=== PATIENT | male | born 1945 | race Caucasian/White ===

== ENCOUNTER 2021-10-07 10:32 | Inpatient (IN) | payer MEDICARE, MEDICAID ==
[~2021-10-07] VITALS: Ht 167.6 cm; Wt 107.3 kg
[2021-10-07] MEDS ORDERED: IOHEXOL-350 100 ML BOTTLE ONE (11:31)
[2021-10-07] MEDS ORDERED: LABETALOL 5MG/ML SYR 20 MG/4 ML SYRINGE IV ONE (11:45)
[2021-10-07 11:48] LABS: CLARITY URINE CLEAR (CLEAR); COLOR URINE YELLOW (YELLOW); KETONES URINE NEGATIVE (NEGATIVE); LEUKOCYTE ESTERASE URINE NEGATIVE (NEGATIVE); NITRITE URINE NEGATIVE (NEGATIVE); OCCULT BLOOD URINE NEGATIVE (NEGATIVE); PH URINE 7.5 (4.5-8.0); PROTEIN URINE NEGATIVE (NEGATIVE); SPECIFIC GRAVITY URINE 1.033 (1.005-1.030); UROBILINOGEN URINE 0.2 E.U./dL (0.2-1.0)
[2021-10-07 11:49] LABS: BASOPHILS % 0.9 % (0.0-2.0); EOSINOPHILS % 1.1 % (0.0-5.0); HEMATOCRIT. 45.4 % (42.0-52.0); HEMOGLOBIN. 14.9 g/dL (14.0-18.0); LYMPHOCYTES % 11.8 % (20.0-50.0); MEAN CORPUSCULAR HEMOGLOBIN 29.3 pg (28.0-32.0); MEAN CORPUSCULAR VOLUME 89.3 fL (80.0-94.0); MEAN PLATELET VOLUME 7.9 fl (7.4-10.4); MONOCYTES % 11.6 % (2.0-8.0); NEUTROPHILS % 74.6 % (40.0-76.0); PLATELET 268 x1000/uL (130-400); RED BLOOD CELL COUNT 5.08 mill/uL (4.7-6.1); RED CELL DISTRIBUTION WIDTH 14.6 % (11.6-14.6)
[2021-10-07 11:53] LABS: CHLORIDE 94 mEq/L (98-107)
[2021-10-07 11:56] LABS: ETHANOL BLOOD < 10 mg/dL
[2021-10-07 12:10] LABS: *AMPHETAMINES SCREEN URINE NEGATIVE (NEGATIVE); OPIATES URINE SCREEN NEGATIVE (NEGATIVE)
[2021-10-07 12:14] LABS: *BENZODIAZEPINES SCREEN URINE NEGATIVE (NEGATIVE)
[2021-10-07 12:15] LABS: *COCAINE SCREEN URINE NEGATIVE (NEGATIVE); METHADONE URINE SCREEN NEGATIVE (NEGATIVE)
[2021-10-07 12:17] LABS: *BARBITURATES SCREEN URINE NEGATIVE (NEGATIVE)
[2021-10-07 12:18] LABS: CANNABINOID URINE SCREEN NEGATIVE (NEGATIVE); PHENCYCLIDINE URINE SCREEN NEGATIVE (NEGATIVE)
[2021-10-07] MEDS ORDERED: ACETAMINOPHEN 325MG TABLET PO PRN (14:00)
[2021-10-07] MEDS ORDERED: MAGNESIUM/ALUMINUM HYDROXIDE/SIMETHICONE 30ML UDC PO PRN (14:00)
[2021-10-07] MEDS ORDERED: GUAIFENESIN 200MG/10ML SUGAR FREE UDC PO PRN (14:00)
[2021-10-07] MEDS ORDERED: NITROGLYCERIN 0.4MG TABLET SL SL PRN (14:00)
[2021-10-07] MEDS ORDERED: IPRATROPIUM/ALBUTEROL 0.5-3(2.5)MG/3ML NEB NEB PRN (14:00)
[2021-10-07] MEDS ORDERED: POTASSIUM CHLORIDE 20MEQ TABLET SR PO NR (14:00)
[2021-10-07] MEDS ORDERED: ENOXAPARIN 40MG/0.4ML SYR SUBCUT SCH (14:00)
[2021-10-07] MEDS ORDERED: DOCUSATE SODIUM 100MG CAPSULE PO PRN (14:00)
[2021-10-07 14:49] LABS: FOLIC ACID (FOLATE) SERUM 11.1 ng/mL (>5.38)
[2021-10-07] MEDS: AMLODIPINE 10MG TABLET PO SCH (15:23)
[2021-10-07] MEDS: ENOXAPARIN 30MG/0.3ML SYR SUBCUT SCH (15:24)
[2021-10-07] MEDS: CLONIDINE 0.1MG TABLET PO PRN (16:37)
[2021-10-07] MEDS: NITROGLYCERIN OINT 1GM/INCH UDPKT TD SCH ×2 (17:18→23:23)
[2021-10-07] MEDS: ONDANSETRON HCL 4MG/2ML INJ IV PRN (17:19)
[2021-10-07] MEDS: HYDRALAZINE 20MG/ML VIAL IV PRN (17:19)
[2021-10-07] MEDS ORDERED: DEXTROSE 50% WATER 50ML SYRINGE IV PRN (20:45)
[2021-10-07] MEDS: INSULIN LISPRO 100 UNITS/ML SUBCUT SCH (21:00)
[2021-10-07] MEDS: ACETAMINOPHEN 325MG TABLET PO PRN (21:31)
[2021-10-07] MEDS: BLOOD SUGAR DIAGNOSTIC STRIP TEST SCH (21:38)
[2021-10-07] MEDS: FAMOTIDINE 20MG TABLET PO SCH (21:54)
[2021-10-07] MEDS: HYDRALAZINE HCL 50MG TABLET PO SCH (22:00)
[2021-10-07] MEDS: LISINOPRIL 20MG TABLET PO SCH (23:23)
[2021-10-07 23:30] VITALS: BP 115/51
[2021-10-08] VITALS (10 sets, daily range): BP systolic 136–190; BP diastolic 62–128
[2021-10-08 00:17] LABS: CREATINE KINASE MB FRACTION 2.9 ng/mL (0.5-3.6)
[2021-10-08] MEDS: CLONIDINE 0.1MG TABLET PO PRN ×2 (00:22→12:06)
[2021-10-08] MEDS: ACETAMINOPHEN 325MG TABLET PO PRN (00:30)
[2021-10-08] MEDS: ZOLPIDEM TARTRATE 5MG TABLET PO PRN ×2 (00:31→21:44)
[2021-10-08] MEDS: HYDRALAZINE HCL 50MG TABLET PO SCH ×4 (01:14→21:43)
[2021-10-08] MEDS: ENOXAPARIN 30MG/0.3ML SYR SUBCUT SCH ×3 (02:54→22:43)
[2021-10-08] MEDS: NITROGLYCERIN OINT 1GM/INCH UDPKT TD SCH ×3 (05:43→21:44)
[2021-10-08 06:25] LABS: EOSINOPHILS % 3.4 % (0.0-5.0); HEMATOCRIT. 38.7 % (42.0-52.0); HEMOGLOBIN. 12.8 g/dL (14.0-18.0); LYMPHOCYTES % 12.9 % (20.0-50.0); MEAN CORPUSCULAR HEMOGLOBIN 29.2 pg (28.0-32.0); MEAN CORPUSCULAR VOLUME 88.4 fL (80.0-94.0); MEAN PLATELET VOLUME 8.1 fl (7.4-10.4); MONOCYTES % 13.5 % (2.0-8.0); NEUTROPHILS % 69.2 % (40.0-76.0); PLATELET 240 x1000/uL (130-400); RED BLOOD CELL COUNT 4.38 mill/uL (4.7-6.1); RED CELL DISTRIBUTION WIDTH 14.6 % (11.6-14.6)
[2021-10-08 06:41] LABS: CHLORIDE 99 mEq/L (98-107)
[2021-10-08 07:19] LABS: LDL CHOLESTEROL 59 mg/dL (5-100); PHOSPHORUS 3.5 mg/dL (2.5-4.9)
[2021-10-08 07:21] LABS: HDL CHOLESTEROL 84 mg/dL (40-59)
[2021-10-08] MEDS: INSULIN LISPRO 100 UNITS/ML SUBCUT SCH ×4 (08:00→20:17)
[2021-10-08] MEDS: BLOOD SUGAR DIAGNOSTIC STRIP TEST SCH ×4 (08:14→20:17)
[2021-10-08] MEDS: ASPIRIN 325MG EC TABLET PO SCH (09:08)
[2021-10-08] MEDS: LISINOPRIL 20MG TABLET PO SCH ×2 (09:09→20:18)
[2021-10-08] MEDS: AMLODIPINE 10MG TABLET PO SCH (09:09)
[2021-10-08] MEDS: FAMOTIDINE 20MG TABLET PO SCH ×2 (09:09→20:18)
[2021-10-08] MEDS: ONDANSETRON HCL 4MG/2ML INJ IV PRN ×3 (10:05→20:17)
[2021-10-08] MEDS: HYDRALAZINE 20MG/ML VIAL IV PRN (16:07)
[2021-10-09] VITALS (14 sets, daily range): BP systolic 141–210; BP diastolic 76–101
[2021-10-09] MEDS: HYDRALAZINE 20MG/ML VIAL IV PRN ×3 (01:00→19:19)
[2021-10-09] MEDS: CLONIDINE 0.1MG TABLET PO PRN ×2 (01:35→17:56)
[2021-10-09] MEDS: INSULIN LISPRO 100 UNITS/ML SUBCUT SCH ×4 (06:24→20:26)
[2021-10-09] MEDS: BLOOD SUGAR DIAGNOSTIC STRIP TEST SCH ×4 (06:24→20:27)
[2021-10-09] MEDS: NITROGLYCERIN OINT 1GM/INCH UDPKT TD SCH ×3 (06:27→21:59)
[2021-10-09] MEDS: HYDRALAZINE HCL 50MG TABLET PO SCH ×3 (06:28→22:00)
[2021-10-09] MEDS: ONDANSETRON HCL 4MG/2ML INJ IV PRN ×3 (06:34→16:07)
[2021-10-09] MEDS ORDERED: CLON0.3T PO (08:02)
[2021-10-09] MEDS ORDERED: LOSA50TA41 PO (08:02)
[2021-10-09] MEDS ORDERED: MEMA5TAB42 PO (08:02)
[2021-10-09] MEDS ORDERED: METO5TAB86 PO (08:02)
[2021-10-09] MEDS ORDERED: GABA-532 PO (08:02)
[2021-10-09] MEDS ORDERED: MINO2.5T2 PO (08:02)
[2021-10-09] MEDS ORDERED: FURO-151 PO (08:02)
[2021-10-09] MEDS ORDERED: PHEN100C4 PO (08:02)
[2021-10-09] MEDS ORDERED: DULO30CA2 PO (08:02)
[2021-10-09] MEDS ORDERED: HYDR100T26 PO (08:02)
[2021-10-09] MEDS: LISINOPRIL 20MG TABLET PO SCH ×2 (08:46→20:27)
[2021-10-09] MEDS: ASPIRIN 325MG EC TABLET PO SCH (08:46)
[2021-10-09] MEDS: AMLODIPINE 10MG TABLET PO SCH (08:47)
[2021-10-09] MEDS: FAMOTIDINE 20MG TABLET PO SCH ×2 (08:47→20:27)
[2021-10-09] MEDS: ENOXAPARIN 30MG/0.3ML SYR SUBCUT SCH ×2 (08:48→20:27)
[2021-10-09] MEDS ORDERED: CLONIDINE 0.2MG TABLET PO PRN (19:30)
[2021-10-09] MEDS ORDERED: NITROGLYCERIN OINT 1GM/INCH UDPKT TD NR (20:00)
[2021-10-09] MEDS: ACETAMINOPHEN 325MG TABLET PO PRN (20:27)
[2021-10-09] MEDS ORDERED: NITROGLYCERIN OINT 1GM/INCH UDPKT TD SCH (22:00)
[2021-10-10 04:15] VITALS: BP 189/96
[2021-10-10 05:30] VITALS: BP 159/69
[2021-10-10] MEDS: NITROGLYCERIN OINT 1GM/INCH UDPKT TD SCH ×3 (06:30→21:45)
[2021-10-10] MEDS: BLOOD SUGAR DIAGNOSTIC STRIP TEST SCH ×4 (06:31→20:13)
[2021-10-10] MEDS: INSULIN LISPRO 100 UNITS/ML SUBCUT SCH ×4 (06:31→21:00)
[2021-10-10] MEDS: HYDRALAZINE HCL 50MG TABLET PO SCH ×3 (06:31→21:45)
[2021-10-10 08:00] VITALS: BP 165/83
[2021-10-10] MEDS: FAMOTIDINE 20MG TABLET PO SCH ×2 (08:42→21:45)
[2021-10-10] MEDS: MINOXIDIL 2.5MG TABLET PO SCH ×2 (08:42→21:46)
[2021-10-10] MEDS: ASPIRIN 325MG EC TABLET PO SCH (08:42)
[2021-10-10] MEDS: LISINOPRIL 20MG TABLET PO SCH ×2 (08:42→21:46)
[2021-10-10] MEDS: AMLODIPINE 10MG TABLET PO SCH (08:42)
[2021-10-10] MEDS: ENOXAPARIN 30MG/0.3ML SYR SUBCUT SCH ×2 (08:43→21:45)
[2021-10-10] MEDS: ONDANSETRON HCL 4MG/2ML INJ IV PRN ×2 (11:22→20:03)
[2021-10-10 12:00] VITALS: BP 154/71
[2021-10-10] MEDS: ACETAMINOPHEN 325MG TABLET PO PRN (15:41)
[2021-10-10 16:00] VITALS: BP 151/80
[2021-10-10 20:00] VITALS: BP 156/86
[2021-10-11] VITALS: BP 159/86
[2021-10-11 04:00] VITALS: BP 146/86
[2021-10-11] MEDS: BLOOD SUGAR DIAGNOSTIC STRIP TEST SCH (04:56)
[2021-10-11] MEDS: INSULIN LISPRO 100 UNITS/ML SUBCUT SCH (05:17)
[2021-10-11] MEDS: NITROGLYCERIN OINT 1GM/INCH UDPKT TD SCH (06:46)
[2021-10-11] MEDS: HYDRALAZINE HCL 50MG TABLET PO SCH (06:46)
[2021-10-11 08:00] VITALS: BP 178/98
[2021-10-11] MEDS: ASPIRIN 325MG EC TABLET PO SCH (08:20)
[2021-10-11] MEDS: FAMOTIDINE 20MG TABLET PO SCH (08:20)
[2021-10-11] MEDS: AMLODIPINE 10MG TABLET PO SCH (08:20)
[2021-10-11] MEDS: ENOXAPARIN 30MG/0.3ML SYR SUBCUT SCH (08:20)
[2021-10-11] MEDS: MINOXIDIL 2.5MG TABLET PO SCH (08:21)
[2021-10-11] MEDS: LISINOPRIL 20MG TABLET PO SCH (08:21)
[2021-10-11] MEDS ORDERED: MINOXIDIL 2.5MG TABLET PO SCH (09:30)
== END 2021-10-11 11:20 | disposition home health service (06) | DRG 74 ==
LOC: ER 10:45 → MICUSO 11:38 → EDBEDREQTM 11:39 → EDBEDREQ 11:39 → SUPCPDRO 14:00 → 5EST 21:57 → 8WST 10-08 16:34
PROVIDERS: ADMIT Internal Medicine; ATTEND Internal Medicine
DX: G51.0 Bell's palsy (principal); E87.1 Hypo-osmolality and hyponatremia; I16.1 Hypertensive emergency; E11.9 Type 2 diabetes mellitus without complications; E66.9 Obesity, unspecified; E87.6 Hypokalemia; I10 Essential (primary) hypertension; Z86.73 Personal history of transient ischemic attack (TIA), and cerebral infarction without residual deficits; Z79.4 Long term (current) use of insulin; Z68.38 Body mass index [BMI] 38.0-38.9, adult
CPT/HCPCS: 36415; 70496; 70498; 70551; 71045; 80053; 80061; 80185; 80305; 80320; 81003; 82550; 82553; 82607; 82746; 82962; 83036; 83540; 83550; 83735; 84100; 84443; 84484; 85025; 93005; 93306; 93970; 99291; J0360; J1650; J2405; J3490; Q9967; G0480

== ENCOUNTER 2023-02-09 15:01 | Inpatient (IN) | payer MEDICARE, MEDICAID ==
[~2023-02-09] VITALS: Ht 167.6 cm; Wt 98.0 kg
[~2023-02-09 15:01] MED LIST: DULO30CA2 PO; FURO-151 PO; GABA-532 PO; HYDR100T26 PO; LOSA50TA41 PO; MEMA5TAB42 PO; METO5TAB86 PO; PHEN100C4 PO
[2023-02-09 16:39] LABS: BASOPHILS % 0.9 % (0.0-2.0); EOSINOPHILS % 1.2 % (0.0-5.0); HEMATOCRIT. 44.9 % (42.0-52.0); HEMOGLOBIN. 14.6 g/dL (14.0-18.0); LYMPHOCYTES % 12.8 % (20.0-50.0); MEAN CORPUSCULAR HEMOGLOBIN 29.3 pg (28.0-32.0); MEAN CORPUSCULAR VOLUME 90.3 fL (80.0-94.0); MEAN PLATELET VOLUME 7.9 fl (7.4-10.4); MONOCYTES % 7.2 % (2.0-8.0); NEUTROPHILS % 77.9 % (40.0-76.0); PLATELET 242 x1000/uL (130-400); RED BLOOD CELL COUNT 4.97 mill/uL (4.7-6.1); RED CELL DISTRIBUTION WIDTH 13.9 % (11.6-14.6)
[2023-02-09 16:49] LABS: CHLORIDE 101 mEq/L (98-107)
[2023-02-09 17:27] LABS: CLARITY URINE CLEAR (CLEAR); COLOR URINE YELLOW (YELLOW); KETONES URINE NEGATIVE (NEGATIVE); LEUKOCYTE ESTERASE URINE NEGATIVE (NEGATIVE); NITRITE URINE NEGATIVE (NEGATIVE); OCCULT BLOOD URINE NEGATIVE (NEGATIVE); PH URINE 6.5 (4.5-8.0); PROTEIN URINE TRACE (NEGATIVE); SPECIFIC GRAVITY URINE 1.017 (1.005-1.030)
[2023-02-09] MEDS: MECLIZINE 25MG TABLET PO ONE ×2 (18:09→18:56)
[2023-02-09] MEDS ORDERED: AMLODIPINE 5MG TABLET PO ONE (19:15)
[2023-02-09] MEDS ORDERED: HYDRALAZINE HCL 100MG TABLET PO ONE (21:00)
[2023-02-09] MEDS ORDERED: MECLIZINE 12.5MG TABLET PO NR (21:15)
[2023-02-09] MEDS ORDERED: HYDRALAZINE HCL 25MG TABLET PO NR (21:15)
[2023-02-09] MEDS ORDERED: IPRATROPIUM/ALBUTEROL 0.5-3(2.5)MG/3ML NEB HHN PRN (22:00)
[2023-02-09] MEDS ORDERED: NITROGLYCERIN 0.4MG/HR PATCH TOP PRN (22:00)
[2023-02-09] MEDS ORDERED: ACETAMINOPHEN 650MG/20.3ML UDC GT PRN (22:00)
[2023-02-09] MEDS ORDERED: NITROGLYCERIN 0.4MG TABLET SL SL PRN ×2 (22:15→22:30)
[2023-02-09] MEDS: ONDANSETRON HCL 4MG/2ML INJ IV PRN (22:16)
[2023-02-09] MEDS: NIFEDIPINE XL 60MG TAB PO SCH (23:27)
[2023-02-09] MEDS: NITROGLYCERIN OINT 1GM/INCH UDPKT TD SCH (23:27)
[2023-02-10 00:04] LABS: D-DIMER 0.27 mg/L FEU (<0.50)
[2023-02-10 00:12] LABS: CREATINE KINASE MB FRACTION 1.6 ng/mL (0.5-3.6); PHOSPHORUS 3.2 mg/dL (2.5-4.9)
[2023-02-10 00:23] LABS: T4 FREE 0.93 ng/dL (0.76-1.46)
[2023-02-10 00:32] LABS: VITAMIN B12 SERUM 467 pg/mL (211-911)
[2023-02-10 01:00] VITALS: BP 165/94
[2023-02-10] MEDS: NITROGLYCERIN OINT 1GM/INCH UDPKT TD SCH ×3 (05:51→21:06)
[2023-02-10] MEDS: HYDRALAZINE HCL 50MG TABLET PO SCH ×3 (05:52→21:07)
[2023-02-10 06:49] LABS: BASOPHILS % 0.8 % (0.0-2.0); EOSINOPHILS % 1.6 % (0.0-5.0); HEMATOCRIT. 42.6 % (42.0-52.0); LYMPHOCYTES % 13.3 % (20.0-50.0); MEAN CORPUSCULAR HEMOGLOBIN 29.7 pg (28.0-32.0); MEAN CORPUSCULAR VOLUME 90.4 fL (80.0-94.0); MONOCYTES % 11.2 % (2.0-8.0); NEUTROPHILS % 73.1 % (40.0-76.0); PLATELET 251 x1000/uL (130-400); RED BLOOD CELL COUNT 4.72 mill/uL (4.7-6.1); RED CELL DISTRIBUTION WIDTH 13.5 % (11.6-14.6)
[2023-02-10 07:22] LABS: CHLORIDE 106 mEq/L (98-107)
[2023-02-10 07:38] LABS: CREATINE KINASE 53 IU/L (39-308); CREATINE KINASE MB FRACTION 1.7 ng/mL (0.5-3.6); HDL CHOLESTEROL 71 mg/dL (40-59); LDL CHOLESTEROL 57 mg/dL (5-100); PHOSPHORUS 3.3 mg/dL (2.5-4.9)
[2023-02-10 08:34] LABS: BG BASE EXCESS 2.8 mmol/L (-2.0-2.0); BG DEOXYHEMOGLOBIN 4.1 % (0.0-5.0); BG FRACTION INSPIRED OXYGEN 21; BG HCO3 ACT 28.4 mmol/L (22.0-26.0); BG METHEMOGLOBIN 0.3 % (0.0-1.5); BG OXYGEN SATURATION 95.8 % (92.0-98.5); BG OXYHEMOGLOBIN 94.6 % (94.0-97.0); BG PCO2 47.2 mmHg (35.0-45.0); BG PH 7.397 (7.350-7.450); BG PO2 80.9 mmHg (75.0-100.0); BG SAMPLE SITE RIGHT BRACHIAL; BG TOTAL HEMOGLOBIN 14.3 g/dL (12.0-18.0); BG VENT MODE ROOM AIR
[2023-02-10] MEDS ORDERED: FAMOTIDINE 20MG TABLET PO SCH (09:00)
[2023-02-10] MEDS: ASPIRIN 325MG EC TABLET PO SCH (09:29)
[2023-02-10] MEDS: ENOXAPARIN 30MG/0.3ML SYR SUBCUT SCH ×2 (09:29→21:07)
[2023-02-10] MEDS: NIFEDIPINE XL 60MG TAB PO SCH (09:32)
[2023-02-10] MEDS: FAMOTIDINE 20MG TABLET PO SCH ×2 (09:33→21:07)
[2023-02-10] MEDS: LISINOPRIL 20MG TABLET PO SCH ×2 (09:33→21:06)
[2023-02-10 12:00] VITALS: BP 181/90
[2023-02-10] MEDS: ONDANSETRON HCL 4MG/2ML INJ IV PRN ×2 (14:25→21:06)
[2023-02-10 16:00] VITALS: BP 153/86
[2023-02-10] MEDS ORDERED: IPRATROPIUM BROMIDE (0.02%) 0.5MG/2.5ML NEB HHN PRN (17:15)
[2023-02-10] MEDS ORDERED: ALBUTEROL (0.083%) 2.5MG/3ML NEB HHN PRN (17:15)
[2023-02-10 20:00] VITALS: BP 161/92
[2023-02-10] MEDS: ACETAMINOPHEN 325MG TABLET PO PRN (21:31)
[2023-02-11] VITALS (7 sets, daily range): BP systolic 163–201; BP diastolic 82–102
[2023-02-11] MEDS: CLONIDINE 0.1MG TABLET PO PRN ×3 (00:22→23:52)
[2023-02-11 00:52] LABS: *AMPHETAMINES SCREEN URINE NEGATIVE (NEGATIVE); *BARBITURATES SCREEN URINE NEGATIVE (NEGATIVE); *BENZODIAZEPINES SCREEN URINE NEGATIVE (NEGATIVE); *COCAINE SCREEN URINE NEGATIVE (NEGATIVE); CANNABINOID URINE SCREEN NEGATIVE (NEGATIVE); METHADONE URINE SCREEN NEGATIVE (NEGATIVE); OPIATES URINE SCREEN NEGATIVE (NEGATIVE); PHENCYCLIDINE URINE SCREEN NEGATIVE (NEGATIVE)
[2023-02-11] MEDS: HYDRALAZINE HCL 50MG TABLET PO SCH ×3 (04:42→20:21)
[2023-02-11] MEDS: NITROGLYCERIN OINT 1GM/INCH UDPKT TD SCH ×3 (04:42→20:22)
[2023-02-11] MEDS: NIFEDIPINE XL 60MG TAB PO SCH (08:41)
[2023-02-11] MEDS: ENOXAPARIN 30MG/0.3ML SYR SUBCUT SCH ×2 (08:41→20:21)
[2023-02-11] MEDS: FAMOTIDINE 20MG TABLET PO SCH ×2 (08:41→20:21)
[2023-02-11] MEDS: ASPIRIN 325MG EC TABLET PO SCH (08:41)
[2023-02-11] MEDS: LISINOPRIL 20MG TABLET PO SCH ×2 (08:41→20:22)
[2023-02-11] MEDS: ACETAMINOPHEN 325MG TABLET PO PRN (12:16)
[2023-02-11] MEDS: ONDANSETRON HCL 4MG/2ML INJ IV PRN ×2 (12:40→20:21)
[2023-02-12] VITALS: BP 196/117
[2023-02-12 04:00] VITALS: BP 191/97
[2023-02-12] MEDS: HYDRALAZINE HCL 50MG TABLET PO SCH ×2 (06:20→13:31)
[2023-02-12] MEDS: NITROGLYCERIN OINT 1GM/INCH UDPKT TD SCH ×2 (06:20→13:31)
[2023-02-12 08:00] VITALS: BP 170/101
[2023-02-12] MEDS: ASPIRIN 325MG EC TABLET PO SCH (08:25)
[2023-02-12] MEDS: FAMOTIDINE 20MG TABLET PO SCH (08:25)
[2023-02-12] MEDS: NIFEDIPINE XL 60MG TAB PO SCH (08:25)
[2023-02-12] MEDS: LISINOPRIL 20MG TABLET PO SCH (08:25)
[2023-02-12] MEDS: ENOXAPARIN 30MG/0.3ML SYR SUBCUT SCH (08:26)
[2023-02-12] MEDS ORDERED: NIFE-32 PO (08:43)
[2023-02-12] MEDS ORDERED: HYDR-4135 PO (08:43)
[2023-02-12] MEDS ORDERED: ISMO20 MT (08:43)
[2023-02-12] MEDS ORDERED: LISI20TA31 PO (08:43)
[2023-02-12] MEDS ORDERED: MINO2.5T2 MT (08:43)
[2023-02-12] MEDS ORDERED: MINOXIDIL 2.5MG TABLET PO SCH (09:00)
[2023-02-12 12:00] VITALS: BP 186/106
[2023-02-12] MEDS: CLONIDINE 0.1MG TABLET PO PRN (15:04)
[2023-02-12 16:00] VITALS: BP 118/81
[2023-02-12 17:09] VITALS: BP 118/81
== END 2023-02-12 18:00 | disposition home or self-care (01) | DRG 305 ==
LOC: ER 15:01 → MICUSO 21:59 → EDBEDREQTM 22:27 → EDBEDREQ 22:27 → 7WST 02-10 01:25 → 6EST 02-11 23:19
PROVIDERS: ADMIT Student in an Organized Health Care Education/Training Program; ATTEND Internal Medicine
DX: I16.1 Hypertensive emergency (principal); I31.39 Other pericardial effusion (noninflammatory); I67.4 Hypertensive encephalopathy; I50.32 Chronic diastolic (congestive) heart failure; I11.0 Hypertensive heart disease with heart failure; E11.9 Type 2 diabetes mellitus without complications; N28.1 Cyst of kidney, acquired; Z86.73 Personal history of transient ischemic attack (TIA), and cerebral infarction without residual deficits; Z79.899 Other long term (current) drug therapy
CPT/HCPCS: 36415; 36600; 70551; 71045; 76770; 80053; 80061; 80305; 81003; 82375; 82550; 82553; 82607; 82746; 82805; 83036; 83540; 83550; 83735; 83880; 84100; 84439; 84443; 84481; 84484; 85025; 85379; 93005; 93306; 93880; 93970; 97116; 97162; 97166; 99285; J1650; J2405; J8597

== ENCOUNTER 2024-12-30 10:54 | Emergency (ER) | payer MEDICARE, MEDICAID ==
[~2024-12-30] VITALS: Ht 172.7 cm; Wt 91.0 kg
[~2024-12-30 10:54] MED LIST changes: +AMLO5TAB88 PO; +ATOR10TA69 PO; +CLON0.3T PO; +DORZ10DR8 EACHEYE; -FURO-151 PO; -GABA-532 PO; -HYDR100T26 PO; +HYDR100T31 PO; +ISOS30TA91 PO; +MEMA10TA20 PO; -MEMA5TAB42 PO; -METO5TAB86 PO; +MINO2.5T19 PO; +PHEN100C12 PO; -PHEN100C4 PO; +QUET25TA36 PO
[2024-12-30 10:55] VITALS: BP 138/74; PULSE 78; RESP 18; TEMP 36.4; O2SAT 95
[2024-12-30] MEDS ORDERED: TETANUS, DIPHTHERIA, PERTUSSIS VAC/PF 0.5ML (>10YR OLD) IM ONE (12:45)
[2024-12-30 16:46] LABS: BASOPHILS % 0.7 % (0.0-2.0); EOSINOPHILS % 1.9 % (0.0-5.0); HEMATOCRIT. 31.9 % (42.0-52.0); HEMOGLOBIN. 10.5 g/dL (14.0-18.0); LYMPHOCYTES % 15.4 % (20.0-50.0); MEAN CORPUSCULAR HEMOGLOBIN 29.1 pg (28.0-32.0); MEAN CORPUSCULAR HGB CONC 32.8 g/dL (31.0-37.0); MEAN CORPUSCULAR VOLUME 88.6 fL (80.0-94.0); MEAN PLATELET VOLUME 7.7 fl (7.4-10.4); MONOCYTES % 9.8 % (2.0-8.0); NEUTROPHILS % 72.2 % (40.0-76.0); PLATELET 321 x1000/uL (130-400); RED CELL DISTRIBUTION WIDTH 14.3 % (11.6-14.6); WHITE BLOOD COUNT 6.1 x1000/uL (4.5-11.0)
[2024-12-30 16:54] LABS: CHLORIDE 98 mEq/L (98-107); POTASSIUM 4.1 mEq/L (3.5-5.1); SODIUM 134 mEq/L (136-145)
[2024-12-30 16:55] LABS: CARBON DIOXIDE 30 mEq/L (21-32)
[2024-12-30 17:00] LABS: CREATININE 0.8 mg/dL (0.6-1.3); GLUCOSE 90 mg/dL (70-105); TROPONIN I HIGH SENSITIVITY 21 ng/L (3.0-53); UREA NITROGEN BLOOD 12 mg/dL (9-23)
[2024-12-30 17:02] LABS: ALANINE AMINOTRANSFERASE 14 IU/L (10-49); ALBUMIN 3.8 g/dL (3.2-4.8); ASPARTATE AMINOTRANSFERASE 23 IU/L (<34); BILIRUBIN TOTAL 0.2 mg/dL (0.1-1.0); PROTEIN TOTAL 5.8 g/dL (6.0-8.3)
== END 2024-12-30 18:35 | disposition home or self-care (01) ==
LOC: ER 12:32
DX: S01.01XA Laceration without foreign body of scalp, initial encounter (principal); D64.9 Anemia, unspecified; F19.90 Other psychoactive substance use, unspecified, uncomplicated; I10 Essential (primary) hypertension; E11.9 Type 2 diabetes mellitus without complications; Z86.73 Personal history of transient ischemic attack (TIA), and cerebral infarction without residual deficits; Z79.899 Other long term (current) drug therapy; W01.0XXA Fall on same level from slipping, tripping and stumbling without subsequent striking against object, initial encounter; Y93.01 Activity, walking, marching and hiking; Y92.89 Other specified places as the place of occurrence of the external cause; Y99.8 Other external cause status
CPT/HCPCS: 12001; 36415; 71045; 73630; 80053; 84484; 85025; 93005; 99284